=== PATIENT | male | born 1990 | race Caucasian/White ===

== ENCOUNTER 2017-08-09 15:38 | Emergency (ER) | payer OTHER ==
[~2017-08-09] VITALS: Ht 182.9 cm; Wt 120.2 kg
[2017-08-09 16:12] VITALS: BP_SYST 140
[2017-08-09] MEDS ORDERED: BACITRACIN 1 GM OINT TP ONE (16:30)
[2017-08-09] MEDS ORDERED: IBUPROFEN 800 MG TABLET PO ONE (16:30)
[2017-08-09] MEDS ORDERED: LIDOCAINE/EPI 2% 1:100000 20 ML VIAL IJ ONE (16:30)
[2017-08-09 17:15] VITALS: BP_SYST 130
== END 2017-08-09 17:15 | disposition home or self-care (01) ==
LOC: SED 15:38
DX: S81.812A Laceration without foreign body, left lower leg, initial encounter (principal); W01.198A Fall on same level from slipping, tripping and stumbling with subsequent striking against other object, initial encounter; Y93.89 Activity, other specified; Y92.89 Other specified places as the place of occurrence of the external cause; Y99.8 Other external cause status
CPT/HCPCS: 99283